=== PATIENT | male | born 1995 | race Caucasian/White ===

== ENCOUNTER 2017-06-11 10:53 | Emergency (ER) | payer BC ==
--- NOTE | 2017-06-11 11:18 | UC ---
Cardiac HPI - HPI Summary HPI Summary: patient has been feeling a pulling on the left side of his sternum for the past 3-4 days. denies SOB, dizzyness, lightheadedness. he feels it more when he is sitting. he works as a fast food cashier - History of Current Complaint Chief Complaint: UCChestPain Stated Complaint: CHEST TIGHTNESS Time Seen by Provider: 06/11/17 10:56 Hx Obtained From: Patient Onset/Duration: Gradual Onset, Lasting Days Timing: Constant Initial Severity: Moderate Current Severity: Moderate Chest Pain Location: Mid Sternal Character: Tightness Aggravating: Nothing Alleviating: Position - Allergy/Home Medications Allergies/Adverse Reactions: Allergies Allergy/AdvReac Type Severity Reaction Status Date / Time No Known Allergies Allergy Verified 06/11/17 10:59 Home Medications: Home Medications Acne Med 1 tab BID 06/11/17 [History] PMH/Surg Hx/FS Hx/Imm Hx Previously Healthy: Yes - Surgical History Surgical History: None - Family History Known Family History: Positive: Cardiac Disease, Hypertension - Social History Alcohol Use: None Substance Use Type: None Smoking Status (MU): Never Smoked Tobacco - Immunization History Most Recent Influenza Vaccination: 2015 Most Recent Tetanus Shot: UTD Most Recent Pneumonia Vaccination: N/A Vaccination Up to Date: Yes Review of Systems Constitutional: Negative Skin: Negative Eyes: Negative ENT: Negative Respiratory: Negative Cardiovascular: Chest Pain Gastrointestinal: Negative Genitourinary: Negative Motor: Negative Musculoskeletal: Myalgia Neurological: Negative Psychological: Negative All Other Systems Reviewed And Are Negative: Yes Physical Exam Triage Information Reviewed: Yes Appearance: Well-Appearing, Well-Nourished, Pain Distress Vital Signs: Initial Vital Signs Temp 97 F 06/11/17 11:01 Pulse 76 06/11/17 11:01 Resp 16 06/11/17 11:01 BP 138/69 06/11/17 11:01 Pulse Ox 100 06/11/17 11:01 Vital Signs Reviewed: Yes Eye Exam: Normal ENT Exam: Normal Dental Exam: Normal Neck exam: Normal Respiratory Exam: Normal Respiratory: Positive: Chest non-tender, Lungs clear, Normal breath sounds Cardiovascular: Positive: RRR, No Murmur, Pulses Normal, Other: - no murmur, pedal and radial pulses are regular and strong, no bruits ascultated Abdominal Exam: Normal Abdomen Description: Positive: Nontender, No Organomegaly, Soft Bowel Sounds: Positive: Present Musculoskeletal Exam: Normal Neurological Exam: Normal Psychological Exam: Normal Skin Exam: Normal - Assessment/Plan Course Of Treatment: hx obtained, exam performed, meds reviewed, stretches performed which relieved the pectoral pain and tenderness, eduacted on posture and stretching, cardiac exam negative - Differential Diagnoses - Chest Pain Differential Diagnosis/HQI/PQRI: Angina - Clinical Impression Provider Diagnoses: hypertonicity of the pectoralis major. sternal pain Discharge - Discharge Plan Condition: Stable Disposition: HOME Patient Education Materials: Musculoskeletal Pain (ED), Muscle Spasm (ED) Additional Instructions: 1. continue with the stretches we discussed. 2. If symptoms persist, follow up with medical provider.
[2017-06-11 11:30] VITALS: BP 138/69
== END 2017-06-11 11:25 | disposition home or self-care (01) ==
LOC: UCCORT 10:53
DX: M25.512 Pain in left shoulder (principal); M62.9 Disorder of muscle, unspecified
CPT/HCPCS: 99201; G0463

== ENCOUNTER 2018-02-23 12:18 | Emergency (ER) | payer BC ==
[2018-02-23 12:58] VITALS: BP 123/73
--- NOTE | 2018-02-23 13:05 | UC ---
Psychiatric Complaint HPI - History Of Current Complaint Chief Complaint: UCRespiratory Stated Complaint: RESPIRATORY Time Seen by Provider: 02/23/18 12:34 - Allergies/Home Medications Allergies/Adverse Reactions: Allergies Allergy/AdvReac Type Severity Reaction Status Date / Time No Known Allergies Allergy Verified 02/23/18 12:48 Home Medications: Home Medications Ibuprofen TAB* [Advil TAB*] 400 mg PO Q6H PRN 02/23/18 [History Confirmed ] Minocycline HCl 50 mg PO BID 02/23/18 [History Confirmed 02/23/18] PMH/Surg Hx/FS Hx/Imm Hx - Surgical History Surgical History: None - Family History Known Family History: Positive: Cardiac Disease, Hypertension - Social History Alcohol Use: Rare Substance Use Type: None Smoking Status (MU): Never Smoked Tobacco - Immunization History Most Recent Influenza Vaccination: 2015 Most Recent Tetanus Shot: UTD Most Recent Pneumonia Vaccination: N/A Vaccination Up to Date: Yes Physical Exam Vital Signs: Initial Vital Signs Temp 98.4 F 02/23/18 12:50 Pulse 80 02/23/18 12:50 Resp 16 02/23/18 12:50 BP 123/73 02/23/18 12:50 Pulse Ox 100 02/23/18 12:50 Discharge - Discharge Plan Referrals: Britton Starks DO [Primary Care Provider] -
--- NOTE | 2018-02-23 13:16 | UC ---
Respiratory Complaint HPI - HPI Summary HPI Summary: Pt c/o "burning lungs" X 1 week low back pain and generalized malaise X 1 week. - History of Current Complaint Chief Complaint: UCRespiratory Stated Complaint: RESPIRATORY Time Seen by Provider: 02/23/18 12:34 Hx Obtained From: Patient Onset/Duration: Gradual Onset, Lasting Days, Still Present Timing: Constant Severity Initially: Mild Severity Currently: Mild Pain Intensity: 0 Pain Scale Used: 0-10 Numeric Aggravating Factors: Exertion Alleviating Factors: Spontaneous Resolution Associated Signs And Symptoms: Positive: Dyspnea, Chills - Risk Factors Pulmonary Embolism Risk Factors: Negative Cardiac Risk Factors: Negative Pseudomonas Risk Factors: Negative Tuberculosis Risk Factors: Negative - Allergies/Home Medications Allergies/Adverse Reactions: Allergies Allergy/AdvReac Type Severity Reaction Status Date / Time No Known Allergies Allergy Verified 02/23/18 12:48 Home Medications: Home Medications Ibuprofen TAB* [Advil TAB*] 400 mg PO Q6H PRN 02/23/18 [History Confirmed ] Minocycline HCl 50 mg PO BID 02/23/18 [History Confirmed 02/23/18] PMH/Surg Hx/FS Hx/Imm Hx Previously Healthy: Yes - Surgical History Surgical History: None - Family History Known Family History: Positive: Cardiac Disease, Hypertension - Social History Occupation: Student Lives: Dormitory/Roommates Alcohol Use: Rare Substance Use Type: None Smoking Status (MU): Never Smoked Tobacco Have You Smoked in the Last Year: No - Immunization History Most Recent Influenza Vaccination: 2015 Most Recent Tetanus Shot: UTD Most Recent Pneumonia Vaccination: N/A Vaccination Up to Date: Yes Review of Systems Constitutional: Negative Skin: Negative Eyes: Negative ENT: Negative Respiratory: Shortness Of Breath - with exertion Cardiovascular: Negative Gastrointestinal: Negative Genitourinary: Negative Motor: Negative Neurovascular: Negative Musculoskeletal: Negative Neurological: Negative Psychological: Negative Is Patient Immunocompromised?: No All Other Systems Reviewed And Are Negative: Yes Physical Exam Triage Information Reviewed: Yes Appearance: Well-Appearing Vital Signs: Initial Vital Signs Temp 98.4 F 02/23/18 12:50 Pulse 80 02/23/18 12:50 Resp 16 02/23/18 12:50 BP 123/73 02/23/18 12:50 Pulse Ox 100 02/23/18 12:50 Vital Signs Reviewed: Yes Eye Exam: Normal ENT Exam: Normal Neck exam: Normal Respiratory Exam: Normal Cardiovascular Exam: Normal Musculoskeletal Exam: Normal Neurological Exam: Normal Psychological Exam: Normal Skin Exam: Normal Diagnostic Evaluation - Laboratory O2 Sat by Pulse Oximetry: 100 Respiratory Course/Dx - Differential Dx/Diagnosis Differential Diagnosis/HQI/PQRI: Bronchitis Provider Diagnoses: reactive airway disease Discharge - Sign-Out/Discharge Documenting (check all that apply): Discharge - Discharge Plan Condition: Stable Disposition: HOME Prescriptions: Albuterol HFA INHALER* [Ventolin HFA Inhaler*] 1 puff INH Q6H PRN #1 mdi PRN Reason: Sob/Wheezing predniSONE TAB* [Deltasone TAB*] 30 mg PO DAILY #12 tab Patient Education Materials: Reactive Airways Disease (ED) Referrals: Britton Starks DO [Primary Care Provider] - - Billing Disposition and Condition Condition: STABLE Disposition: HOME
== END 2018-02-23 13:11 | disposition home or self-care (01) ==
LOC: UCCORT 12:18
DX: J45.909 Unspecified asthma, uncomplicated (principal)
CPT/HCPCS: 99212; G0463